=== PATIENT | male | born 1995 | race Caucasian/White ===

== ENCOUNTER 2021-12-08 00:08 | Emergency (ER) | payer OTHER ==
[2021-12-08 00:22] VITALS: TEMP 98.5
[2021-12-08] MEDS ORDERED: BACITRACIN OINT 1 EACH PACKET TOPICAL ONE (00:48)
[2021-12-08] MEDS ORDERED: LIDOCAINE 1% INJ 10MG/ML (5 ML VIAL-PF) SQ ONE (00:48)
[2021-12-08] MEDS ORDERED: DIPH,PERTUS(ACELL)TETVAC-LF 0.5 ML VIAL IM ONE (00:49)
--- NOTE | 2021-12-08 01:54 | ED ---
General Adult HPI - General Chief complaint: Wound/Laceration Stated complaint: Finger Laceration, [facility] Time Seen by Provider: 12/08/21 00:24 Source: patient, RN notes reviewed Mode of arrival: ambulatory - History of Present Illness Initial comments: 25-year-old male presents to the emergency department for evaluation of injury to the third finger on the left hand. Patient states he cut his hand on a commercial kitchen knife that had fallen onto the ground. Bleeding was controlled prior to arrival. States he washed the wound with soap and water and dressed it with first aid kit. No loss of sensation or range of motion. Last TD unknown, but presumed to be more than 7 years. Denies any other injuries at this time. - Related Data Allergies Allergy/AdvReac Type Severity Reaction Status Date / Time No Known Allergies Allergy Verified 12/08/21 00:22 Review of Systems ROS Statement: Those systems with pertinent positive or pertinent negative responses have been documented in the HPI. ROS Other: All systems not noted in ROS Statement are negative. Past Medical History Past Medical History: No Reported History History of Any Multi-Drug Resistant Organisms: None Reported Past Surgical History: No Surgical Hx Reported Past Psychological History: No Psychological Hx Reported Smoking Status: Never smoker Past Alcohol Use History: None Reported Past Drug Use History: None Reported General Exam Limitations: no limitations (Well-developed, well-nourished male in no acute distress. Initial temperature 98.5, pulse 60, respirations 17, blood pressure 130/70, pulse ox 99% on room air.) General appearance: alert, in no apparent distress Respiratory exam: Present: normal lung sounds bilaterally. Absent: respiratory distress, wheezes, rales, rhonchi, stridor Cardiovascular Exam: Present: regular rate, normal rhythm, normal heart sounds. Absent: systolic murmur, diastolic murmur, rubs, gallop, clicks GI/Abdominal exam: Present: soft, normal bowel sounds. Absent: distended, tenderness, guarding, rebound, rigid Left Upper Arm exam: Present: normal inspection, full ROM. Absent: tenderness, swelling Elbow exam: Present: normal inspection, full ROM. Absent: tenderness, swelling Forearm Wrist exam: Present: normal inspection, full ROM. Absent: tenderness, swelling Hand Wrist exam: Present: laceration (Small flap laceration to the distal phalanx of the third digit on the left, palmar surface. Distal sensation intact. ) Vascular: Present: normal capillary refill, radial pulse. Absent: vascular compromise, Pallo Neurological exam: Present: alert, oriented X3, CN II-XII intact Psychiatric exam: Present: normal affect, normal mood Course Vital Signs 12/08/21 12/08/21 00:19 02:15 Temperature 98.5 F Pulse Rate 60 52 L Respiratory 17 16 Rate Blood Pressure 130/70 120/81 O2 Sat by Pulse 99 97 Oximetry Procedures - Laceration Laceration #1 Consent Obtained: verbal consent Indication: laceration Site: hand (3rd digit, left hand, distal phalanx) Description: flap Depth: simple, single layer Anesthetic Used: lidocaine 1% Anesthesia Technique: local infiltration Amount (mls): 2 Pre-repair: wound explored, irrigated extensively, deep structures intact Type of Sutures: nylon Size of Sutures: 5-0 Number of Sutures: 2 Technique: simple, interrupted Patient Tolerated Procedure: well, no complications Additional Comments: Wound care instructions were reviewed at length. Instructed to have sutures removed in 7-10 days. Return parameters discussed in detail. Medical Decision Making - Medical Decision Making 25-year-old male presents to the emergency department for evaluation of small flap laceration to the palmar surface of the distal phalanx of the third digit of the left hand. Bleeding controlled prior to arrival. Minimal discomfort. No loss of sensation or range of motion. Wound was closed with 2 simple interrupted sutures. Patient tolerated procedure well. Bacitracin dressing applied. Instructed on wound care with suture removal in 7-10 days. TD updated. Instructed to have wound recheck in 48 hours. Return parameters discussed in detail. Patient verbalizes understanding and agrees with this plan. No imaging necessary. Attending: Stefania. Disposition Clinical Impression: Finger laceration Disposition: HOME SELF-CARE Condition: Stable Instructions (If sedation given, give patient instructions): Care For Your Stitches (ED), Laceration (ED) Additional Instructions: Gently cleanse wound twice daily with mild soap and water. Apply antibiotic ointment and cover with dressing. Follow up with your PCP for a wound recheck in 3-4 days if needed. Sutures to be removed in 7-10 days. Monitor carefully for signs of infections including increased redness, swelling, or foul smelling drainage. Return to the emergency department with any new, worsening, or concerning symptoms. Is patient prescribed a controlled substance at d/c from ED?: No Referrals: None,Stated [Primary Care Provider] - 1-2 days Time of Disposition: 01:54
[2021-12-08 02:16] VITALS: BP 120/81; PULSE 52; RESP 16
== END 2021-12-08 02:16 | disposition home or self-care (01) ==
LOC: EC 00:08
DX: S61.213A Laceration without foreign body of left middle finger without damage to nail, initial encounter (principal); W26.0XXA Contact with knife, initial encounter; Z23 Encounter for immunization
CPT/HCPCS: 99283; 12001; 90471; 90715; J2001